=== PATIENT | female | born 1965 | race Caucasian/White ===

== ENCOUNTER 2016-05-12 09:47 | Emergency (ER) | payer OTHER ==
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
== END 2016-05-12 09:55 | disposition home or self-care (01) ==
LOC: CED 09:47
DX: S16.1XXA Strain of muscle, fascia and tendon at neck level, initial encounter (principal); S29.012A Strain of muscle and tendon of back wall of thorax, initial encounter; S20.219A Contusion of unspecified front wall of thorax, initial encounter; S80.01XA Contusion of right knee, initial encounter; S80.11XA Contusion of right lower leg, initial encounter; Z23 Encounter for immunization; V49.9XXA Car occupant (driver) (passenger) injured in unspecified traffic accident, initial encounter; Y93.89 Activity, other specified; Y92.410 Unspecified street and highway as the place of occurrence of the external cause
CPT/HCPCS: 71020; 72040; 72072; 73590; 90471; 90715; 99284